=== PATIENT | male | born 1990 | race African-American/Black ===

== ENCOUNTER 2021-08-01 09:01 | Emergency (ER) | payer MEDICAID, OTHER ==
[~2021-08-01] VITALS: Ht 160 cm; Wt 95.0 kg
[2021-08-01] MEDS ORDERED: PREDNISONE 20MG TABLET PO ONE (10:30)
[2021-08-01] MEDS ORDERED: ALBU6.7H9 INH (10:46)
[2021-08-01] MEDS ORDERED: AZIT250T12 MT (10:46)
[2021-08-01] MEDS ORDERED: P20 MT (10:46)
[2021-08-01 10:55] VITALS: BP 122/86
== END 2021-08-01 10:50 | disposition home or self-care (01) ==
LOC: ER 09:01
DX: U07.1 COVID-19 (principal)
CPT/HCPCS: 71045; 99284; C9803; J7042; J7512; U0003; U0005

== ENCOUNTER 2022-08-12 17:40 | Emergency (ER) | payer MEDICAID ==
[~2022-08-12] VITALS: Ht 165.1 cm; Wt 75.0 kg
[~2022-08-12 17:40] MED LIST: ALBU6.7H9 INH; AZIT250T12 MT; P20 MT
[2022-08-12] MEDS ORDERED: TETANUS, DIPHTHERIA, PERTUSSIS VAC/PF 0.5ML (>10YR OLD) IM ONE (19:00)
[2022-08-12] MEDS ORDERED: IBUPROFEN 600MG TABLET PO ONE (19:00)
[2022-08-12] MEDS ORDERED: AMOXICILLIN/POTASSIUM CLAVULANATE 875/125MG TAB PO ONE (19:00)
[2022-08-12 19:19] VITALS: BP 186/99
[2022-08-12] MEDS ORDERED: AMOX1TAB16 MT (19:21)
== END 2022-08-12 19:39 ==
LOC: ER 17:40
DX: S81.052A Open bite, left knee, initial encounter (principal); S61.451A Open bite of right hand, initial encounter; W54.0XXA Bitten by dog, initial encounter; Y93.89 Activity, other specified; Y92.9 Unspecified place or not applicable
CPT/HCPCS: 90471; 90715; 99283

== ENCOUNTER 2025-01-28 17:37 | Emergency (ER) | payer MEDICAID, OTHER ==
[~2025-01-28] VITALS: Ht 162.6 cm; Wt 98.0 kg
[~2025-01-28 17:37] MED LIST changes: +ALBU6.7H3 INH; -ALBU6.7H9 INH; +AMOX1TAB16 MT
[2025-01-28 17:42] VITALS: PULSE 102; RESP 14; O2SAT 99
[2025-01-28 17:45] VITALS: BP 147/89; TEMP 36.8; O2SAT 98
== END 2025-01-28 20:25 | disposition left against medical advice (07) ==
LOC: ER 17:37
DX: M25.512 Pain in left shoulder (principal); Z79.899 Other long term (current) drug therapy
CPT/HCPCS: 99281